=== PATIENT | male | born 1985 | race Caucasian/White ===

== ENCOUNTER 2023-06-04 08:05 | Day surgery (SDC) | payer OTHER ==
[2023-06-04] MEDS ORDERED: Lidocaine 1% PF 5 ML VIAL ONE (08:25)
[2023-06-04] MEDS ORDERED: Sodium Bicarbonate 2.5 MEQ/5 ML VIAL ONE (08:25)
[2023-06-04 09:00] VITALS: BP 132/80; TEMP 98
== END 2023-06-04 10:25 | disposition home or self-care (01) ==
LOC: CSHRAD 08:05
PROVIDERS: ATTEND Neurological Surgery
DX: M50.30 Other cervical disc degeneration, unspecified cervical region (principal); M54.50 Low back pain, unspecified
CPT/HCPCS: 62302; 72100; 72126